=== PATIENT | male | born 1965 | race African-American/Black ===

== ENCOUNTER 2018-09-02 07:08 | Day surgery (SDC) | payer MEDICAID ==
[~2018-09-02] VITALS: Ht 165.1 cm; Wt 59.0 kg
[~2018-09-02 07:08] MED LIST: CIPROFLOXACIN 0.3% OPHTH SOLN 2.5ML RIGHTEYE SCH; LACTATED RINGERS 1,000 ML IV SCH
[2018-09-02] MEDS ORDERED: BALANCED SALT IRRIG SOLN 15ML ONE (08:00)
[2018-09-02] MEDS ORDERED: TETRACAINE 0.5% OPHTH DROPS 4ML ONE (08:00)
[2018-09-02] MEDS ORDERED: LIDOCAINE HCL 2%/EPINEPHRINE 1:100,000 20 ML VIAL INFIL ONE (08:00)
[2018-09-02] MEDS ORDERED: NEO/POLYMYX B SULF/DEXAMETH OPHTH OINT 3.5GM ONE (08:00)
[2018-09-02] MEDS ORDERED: TOBRAMYCIN/DEXAMETH 0.1/0.3% OPHTH SUSP 2.5ML ONE (08:35)
[2018-09-02] MEDS ORDERED: METHYLPREDNISOLONE SOD SUCC 40 MG/ML VIAL ONE (08:36)
[2018-09-02] MEDS ORDERED: MIDAZOLAM HCL 2 MG/2 ML VIAL ONE ×2 (09:16→09:19)
[2018-09-02] MEDS ORDERED: TOBRAMYCIN SULFATE 80MG/2ML 30ML ONE (09:29)
[2018-09-02] MEDS ORDERED: PROPOFOL 200MG/20ML VIAL IV ONE (09:31)
[2018-09-02] MEDS ORDERED: SODIUM CHLORIDE 0.9% 1,000 ML IV ONE (09:45)
[2018-09-02] MEDS ORDERED: ONDANSETRON HCL 4MG/2ML INJ IV PRN (09:45)
[2018-09-02] MEDS ORDERED: HYDROMORPHONE HCL/PF 2MG/ML CPJ IV PRN (09:45)
[2018-09-02] MEDS ORDERED: ACETAMINOPHEN WITH CODEINE 300/30MG TABLET PO PRN (11:15)
[2018-09-02 11:17] VITALS: BP 111/78
== END 2018-09-02 12:10 | disposition home or self-care (01) ==
LOC: OR 07:08
PROVIDERS: ATTEND Ophthalmology
DX: H11.001 Unspecified pterygium of right eye (principal); Z87.891 Personal history of nicotine dependence; K21.9 Gastro-esophageal reflux disease without esophagitis
CPT/HCPCS: 65426; 88304; J2250; J2704; J2920; J3260; J3490